=== PATIENT | male | born 1940 | race Caucasian/White ===

== ENCOUNTER 2016-05-28 08:26 | Emergency (ER) | payer OTHER, MEDICARE ==
[~2016-05-28] VITALS: Ht 167.6 cm; Wt 72.6 kg
--- NOTE | 2016-05-28 09:06 | ED GI/GU/ABDOMINAL COMPLAINT ---
History of Present Illness General Chief Complaint: Abdominal Pain/Flank Pain Stated Complaint: BACK ABD PAIN ? KIDNEY STONE Source: patient, old records, friend Exam Limitations: no limitations Vital Signs & Intake/Output Vital Signs & Intake/Output Vital Signs Date Time Temp Pulse Resp B/P Pulse O2 O2 Flow FiO2 Ox Delivery Rate 05/28 1428 96.0 72 18 116/68 96 Room Air 05/28 1203 97.0 85 20 131/70 95 Room Air 05/28 1018 98.1 74 16 133/68 99 Room Air 05/28 0831 95.8 84 16 149/79 98 Room Air Allergies Coded Allergies: No Known Allergies (05/28/16) Reconcile Medications Carvedilol 3.125 MG TABLET 1 TAB PO BID HEART (Reported) Clopidogrel Bisulfate (Clopidogrel) 75 MG TABLET 1 TAB PO DAILY BLOOD THINNER (Reported) Ezetimibe (Zetia) 10 MG TABLET 1 TAB PO DAILY CHOLESTEROL (Reported) Finasteride 5 MG TABLET 1 TAB PO DAILY PROSTATE (Reported) Losartan Potassium (Cozaar) 25 MG TABLET 1 TAB PO DAILY HEART (Reported) Lovastatin 40 MG TABLET 1 TAB PO DAILY CHOLESTEROL (Reported) with food Mexiletine HCl 150 MG CAPSULE 1 CAP PO BID UNKNOWN (Reported) Tamsulosin HCl (Flomax) 0.4 MG CAP.ER.24H 1 CAP PO DAILY PROSTATE (Reported) Triage Note: 75 Y/O MALE ABDIOM ABDOMEN AND RADIATING INTO LOW BACK; ONSET LAST NIGHT 1999. HX KIDNEY STONE WITH STENT PLACEMENT 2012 AND STATES THIS FEELS SIMILIAR. HAD HEMATURIA ONCE BUT NONE THIS AM. +N/V. Triage Nurses Notes Reviewed? yes Onset: Evening Duration: hour(s):, continues in ED, waxing and waning Timing: recent history Quality/Severity: aching, sharpness, severe, vomiting Location: left flank, right flank Radiation: periumbilical, suprapubic Activities at Onset: rest Prior Abdominal Problems: similar symptoms Past Sexual History: Unobtainable at this time No Modifying Factors: none Associated Symptoms: abdominal pain, loss of appetite, nausea/vomiting HPI: 5 hours prior to admission patient complains of sharp bilateral flank pain radiating to the periumbilical area described as sharp severe waxing and waning associated with chills nausea vomiting similar to previous kidney stone pain. Reports an episode of hematuria yesterday and cleared. He denies chest pain cough shortness of breath headache dysuria rash bleeding Past History Travel History Traveled to [place] past 21 day No Medical History Any Pertinent Medical History? see below for history Neurological: NONE EENT: NONE Cardiovascular: "HEART DISEASE" Respiratory: NONE Gastrointestinal: NONE Hepatic: NONE Renal: NONE Musculoskeletal: NONE Psychiatric: NONE Endocrine: NONE Blood Disorders: NONE Cancer(s): NONE ENROLLMENT SERVICES DEAN/Reproductive: NONE Surgical History Surgical History: turp, ureteral stents, lithotripsy Psychosocial History What is your primary language [place]uan Tobacco Use: Never used Family History Hx Contributory? No Review of Systems Review of Systems Constitutional: Reports: no symptoms. EENTM: Reports: no symptoms. Respiratory: Reports: no symptoms. Cardiovascular: Reports: no symptoms. GI: Reports: see HPI, abdominal pain, nausea, vomiting. Genitourinary: Reports: see HPI, hematuria, pain. Musculoskeletal: Reports: no symptoms. Skin: Reports: no symptoms. Neurological/Psychological: Reports: no symptoms. Hematologic/Endocrine: Reports: no symptoms. Immunologic/Allergic: Reports: no symptoms. All Other Systems: Reviewed and Negative Physical Exam Physical Exam General Appearance: well developed/nourished, alert, awake, anxious, severe distress Head: atraumatic, normal appearance Eyes: Bilateral: normal appearance, PERRL, EOMI, normal inspection. Ears, Nose, Throat, Mouth: hearing grossly normal, moist mucous membrane Neck: normal inspection, supple, full range of motion, normal alignment Respiratory: normal breath sounds, chest non-tender, no respiratory distress, quiet respiration, lungs clear Cardiovascular: regular rate/rhythm, normal peripheral pulses, norml femoral pulses equa Peripheral Pulses: 4+ carotid (R), 4+ carotid (L), 2+ radial (R), 2+ radial (L) Gastrointestinal: normal bowel sounds, soft, non-tender, no organomegaly Male Genitals: normal genitalia Back: normal inspection, normal range of motion Extremities: normal range of motion, no ligament instability Neurologic/Psych: no motor/sensory deficits, awake, alert, oriented x 3, normal gait, normal mood/affect, 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 No Severe Sepsis Present: No Septic Shock Present: No Progress Differential Diagnosis: ureterolithiasis, UTI/pyelo Plan of Care: Orders Procedure Date/time Status EKG 05/28 1424 Active URINALYSIS 05/28 843 Complete LIPASE 05/28 843 Complete COMPREHENSIVE METABOLIC PANEL 05/28 843 Complete CBC WITHOUT DIFFERENTIAL 05/28 843 Complete Laboratory Tests 05/28/16 1135: Urinalysis LIGHT H, Urine Color YEL, Urine Clarity CLEAR, Urine pH 6.0, Ur Specific [place] >= 1.030, Urine Protein NEG, Urine Ketones 40 H, Urine Nitrite NEG, Urine Bilirubin NEG, Urine Urobilinogen 0.2, Ur Leukocyte Esterase NEG, Ur Microscopic SEDIMENT EXAMINED, Urine RBC 3-5, Urine WBC 3-5 H, Ur Epithelial Cells RARE, Urine Mucus MOD H, Urine Hemoglobin MOD H, Urine Glucose NEG 05/28/16 0922: Anion Gap 12, Estimated GFR > 60, BUN/Creatinine Ratio 27.8 H, Glucose 114 H, Calcium 8.9, Total Bilirubin 0.9, AST 22, ALT 38, Alkaline Phosphatase 54, Total Protein 6.0 L, Albumin 3.6, Globulin 2.4, Albumin/Globulin Ratio 1.5, Lipase 77 , CBC w Diff NO MAN DIFF REQ, RBC 4.59 L, MCV 83.2, MCH 28.1, RDW 13.2, MPV 8.7 , Gran % 89.2 H, Lymphocytes % 6.3 L, Monocytes % 4.5, Eosinophils % 0, Basophils % 0 L, Absolute Granulocytes 7.3 H, Absolute Lymphocytes 0.5 L, Absolute Monocytes 0.4, Absolute Eosinophils 0, Absolute Basophils 0, PUBS MCHC 33.7 Diagnostic Imaging: Viewed by Me: CT Scan. Discussed w/RAD: CT Scan. Radiology Impression: There is an obstructive calculus within the distal right ureter. There is resulting right hydroureteronephrosis. There is extensive right perinephric stranding. Both kidneys contain several small calculi. There are bilateral renal cysts. Cholelithiasis. No evidence of acute cholecystitis. Colonic diverticulosis. No evidence of acute colonic diverticulitis. Marked enlargement of the prostate gland. Cardiomegaly. Initial ED EKG: none Comments: Seen by Dr. Archer, to return for cystoscopy with laser and stent Departure Departure Time of Disposition: 1509 Disposition: HOME OR SELF CARE Condition: Stable Clinical Impression Primary Impression: Renal colic Referrals: MERCY MURPHY,LUPE CHAN MD,Keysha WEINER (PCP/Family) Referred to [facility] as new patient No Departure Forms: Customer Survey General Discharge Information Prescriptions: Current Visit Scripts Tamsulosin HCl (Flomax) 1 CAP PO DAILY #15 CAP Ibuprofen 1 TAB PO Q6PRN PRN pain #50 TAB with food Oxycodone HCl/Acetaminophen (Percocet 5-325 MG Tablet) 1 TAB PO Q6P PRN severe pain #15 TAB
[2016-05-28] MEDS ORDERED: COZAAR25 M1 PO (09:07)
[2016-05-28] MEDS ORDERED: ZETIA10 M1 PO (09:07)
[2016-05-28] MEDS ORDERED: FINASTERIDE5 M1 PO (09:08)
[2016-05-28] MEDS ORDERED: CLOPIDOGREL75 M1 PO (09:08)
[2016-05-28] MEDS ORDERED: LOVASTATIN40 M1 PO (09:09)
[2016-05-28] MEDS ORDERED: CARVEDILOL3.125 M1 PO (09:09)
[2016-05-28] MEDS ORDERED: FLOMAX0.4 M1 PO ×2 (09:10→15:11)
[2016-05-28] MEDS ORDERED: MEXILETINE HCL150 M1 PO (09:10)
[2016-05-28 09:29] LABS: ABSOLUTE BASOPHIL COUNT 0 /CUMM (0.0-0.2); ABSOLUTE EOSINOPHIL COUNT 0 /CUMM (0.0-0.7); ABSOLUTE GRANULOCYTE CT 7.3 /CUMM (1.4-6.5); ABSOLUTE LYMPH COUNT 0.5 /CUMM (1.2-3.4); ABSOLUTE MONOCYTE COUNT 0.4 /CUMM (0.10-0.60); BASOPHIL % 0 % (0.0-2.0); EOSINOPHIL % 0 % (0-5); HEMATOCRIT 38.2 % (42-52); MEAN CORPUSCULAR HGB 28.1 PG (27.0-31.0); MEAN CORPUSCULAR HGB CONC 33.7 G/DL (33.0-37.0); MEAN CORPUSCULAR VOLUME 83.2 FL (80.0-94.0); MEAN PLATELET VOLUME 8.7 FL (7.4-10.4); PLATELET COUNT 171 /CUMM (130-400); RBC DISTRIBUTION WIDTH 13.2 % (11.5-14.5); RED BLOOD CELL CT 4.59 /CUMM (4.70-6.10); WHITE BLOOD CELL COUNT 8.2 /CUMM (4.8-10.8)
[2016-05-28 09:41] LABS: GRANULOCYTE % 89.2 % (42.2-75.2)
--- NOTE | 2016-05-28 11:50 | CT SCAN REPORT ---
EXAMINATION: CT ABDOMEN AND PELVIS WITHOUT CONTRAST CLINICAL INFORMATION: Bilateral flank pain. Nausea and vomiting. COMPARISON: None. TECHNIQUE: Multidetector volumetric imaging was performed from the superior aspect of the liver through the pubic symphysis. Sagittal and coronal reformatted images were obtained on the technologist's workstation. DLP: 378.82 mGy-cm. FINDINGS: LUNG BASES: There are dependent changes at the lung bases. The heart is mildly enlarged. Dual lead pacemaker appears intact. Sternotomy sutures appear intact. No pericardial effusion. LIVER, GALLBLADDER, AND BILIARY TREE: The unenhanced liver is normal in size. The gallbladder contains numerous calculi. There is no evidence of acute cholecystitis. PANCREAS: Normal in size. SPLEEN: Normal in size. ADRENAL GLANDS: No adrenal gland mass. KIDNEYS AND URETERS: There is a 6 mm calculus within the distal right ureter just proximal to the ureterovesicular junction. The proximal right ureter is moderately dilated throughout its course. There is moderate periureteric stranding. There is mild right hydronephrosis. There is extensive right perinephric stranding. There are several punctate calculi scattered throughout the right kidney. There is a partially exophytic low-attenuation lesion along the posterior aspect of the mid to lower region of the right kidney measuring 2.3 x 2.5 cm. There is no left hydronephrosis. There is a partially exophytic low-attenuation lesion measuring 3.8 x 3.7 cm within the upper pole of the left kidney. There are several small calculi scattered throughout the left kidney, the largest measuring approximately 3 mm. There is nonspecific, mild perinephric stranding on the left. The urinary bladder is partially distended. It appears grossly normal. There is no bladder calculi. GASTROINTESTINAL TRACT: The unopacified small bowel and colon are normal in caliber. Mild sigmoid colon diverticulosis. No diverticulitis. The appendix is not definitely identified. However, there are no inflammatory changes in the expected location of the appendix to indicate acute appendicitis. ABDOMINAL WALL: There are fat-containing inguinal hernias. There are postsurgical changes status post left inguinal hernia repair. LYMPH NODES: There are mildly enlarged lymph nodes within the retroperitoneum, likely reactive. VASCULAR: There is no abdominal aortic aneurysm. There is moderate atherosclerotic calcification throughout the abdominal aorta. PELVIC VISCERA: The prostate gland is markedly enlarged measuring 6.2 x 6.5 cm. OSSEOUS STRUCTURES: There are significant degenerative changes of the lower lumbar spine, most severe at L5-S1. IMPRESSION: There is an obstructive calculus within the distal right ureter. There is resulting right hydroureteronephrosis. There is extensive right perinephric stranding. Both kidneys contain several small calculi. There are bilateral renal cysts. Cholelithiasis. No evidence of acute cholecystitis. Colonic diverticulosis. No evidence of acute colonic diverticulitis. Marked enlargement of the prostate gland. Cardiomegaly. The above findings were discussed with Dr Tyshawn Morataya at 11:40 AM on 05/28/2016.
[2016-05-28 14:28] VITALS: BP 116/68
--- NOTE | 2016-05-28 15:10 | Cons- Urology ---
General Information and HPI Consulting Request Date of Consult: 05/28/16 Requested By: MD JULIA, [facility] Reason for Consult: RIGHT HYDRO. URETER STONE Source of Information: patient, old records Exam Limitations: no limitations History of Present Illness: 75YR WITH SEVERE RIGHT COLIC, 6MM WITH HYDRO ON RIGHT WITH CT. PAIN/NAUSEA RESOLVED WITH MORPHINE. Allergies/Medications Allergies: Coded Allergies: No Known Allergies (05/28/16) Home Med List: Carvedilol 3.125 MG TABLET 1 TAB PO BID HEART (Reported) Clopidogrel Bisulfate (Clopidogrel) 75 MG TABLET 1 TAB PO DAILY BLOOD THINNER (Reported) Ezetimibe (Zetia) 10 MG TABLET 1 TAB PO DAILY CHOLESTEROL (Reported) Finasteride 5 MG TABLET 1 TAB PO DAILY PROSTATE (Reported) Losartan Potassium (Cozaar) 25 MG TABLET 1 TAB PO DAILY HEART (Reported) Lovastatin 40 MG TABLET 1 TAB PO DAILY CHOLESTEROL (Reported) with food Mexiletine HCl 150 MG CAPSULE 1 CAP PO BID UNKNOWN (Reported) Tamsulosin HCl (Flomax) 0.4 MG CAP.ER.24H 1 CAP PO DAILY PROSTATE (Reported) Current Medications: Current Medications Sig/Donte Start time Last Medication Dose Route Stop Time Status Admin Ketorolac 0 .STK-MED ONE 05/28 857 DC Tromethamine .ROUTE Ketorolac 30 MG ONCE ONE 05/28 844 DC 05/28 Tromethamine IV 05/28 0846 0901 Morphine Sulfate 0 .STK-MED ONE 05/28 1230 DC .ROUTE Morphine Sulfate 4 MG ONCE ONE 05/28 1215 DC 05/28 IV 05/28 1216 1235 Morphine Sulfate 0 .STK-MED ONE 05/28 0858 DC .ROUTE Morphine Sulfate 4 MG ONCE ONE 05/28 0745 DC / IV 05/28 0846 0901 Ondansetron HCl 0 .STK-MED ONE 05/28 0858 DC .ROUTE Ondansetron HCl 4 MG ONCE ONE 05/28 0745 DC 05/28 IV 05/28 0846 0901 Sodium Chloride 1,000 ML BOLUS ONE 05/28 1415 AC / IV 05/28 1514 1438 Sodium Chloride 1,000 ML BOLUS ONE 05/28 0845 DC 05/28 IV 05/28 0944 0855 Past History Medical History Neurological: NONE EENT: NONE Cardiovascular: "HEART DISEASE" Respiratory: NONE Gastrointestinal: NONE Hepatic: NONE Renal: NONE Musculoskeletal: NONE Psychiatric: NONE Endocrine: NONE Blood Disorders: NONE Cancer(s): NONE 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 yes Review of Systems Review of Systems Constitutional: Denies: no symptoms. EENTM: Denies: no symptoms. Cardiovascular: Denies: no symptoms. Respiratory: Denies: no symptoms. GI: Reports: abdominal pain. Genitourinary: Denies: no symptoms. Musculoskeletal: Denies: no symptoms. Exam & Diagnostic Data Vital Signs and I&O Vital Signs Date Time Temp Pulse Resp B/P Pulse O2 O2 Flow FiO2 Ox Delivery Rate 05/28 1428 96.0 72 18 116/68 96 Room Air 05/28 1203 97.0 85 20 131/70 95 Room Air 05/28 1018 98.1 74 16 133/68 99 Room Air 05/28 0831 95.8 84 16 149/79 98 Room Air Intake & Output 05/28 1600 05/28 0800 05/28 0000 05/27 1600 05/27 0800 05/27 0000 Intake Total 1000 Output Total Balance 1000 Intake, IV 1000 Patient 160 lb Weight Physical Exam General Appearance: well developed/nourished, no apparent distress Head: atraumatic Eyes: Bilateral: normal appearance. Respiratory: normal breath sounds Cardiovascular: regular rate/rhythm Gastrointestinal: normal bowel sounds Back: CVA tenderness (R) Extremities: normal inspection Skin: intact, normal color Last 24 Hours of Labs: Laboratory Tests 05/28 05/28 1135 0922 Chemistry Sodium (137 - 145 mmol/L) 138 Potassium (3.5 - 5.1 mmol/L) 3.7 Chloride (98 - 107 mmol/L) 105 Carbon Dioxide (22 - 30 mmol/L) 21 L Anion Gap (5 - 16) 12 BUN (9 - 20 mg/dL) 25 H Creatinine (0.7 - 1.2 mg/dL) 0.9 Estimated GFR (>60 ml/min) > 60 BUN/Creatinine Ratio (7 - 25 %) 27.8 H Glucose (65 - 99 mg/dL) 114 H Calcium (8.4 - 10.2 mg/dL) 8.9 Total Bilirubin (0.2 - 1.3 mg/dL) 0.9 AST (17 - 59 U/L) 22 ALT (21 - 72 U/L) 38 Alkaline Phosphatase (< 127 U/L) 54 Total Protein (6.3 - 8.2 g/dL) 6.0 L Albumin (3.5 - 5.0 g/dL) 3.6 Globulin (1.9 - 4.2 gm/dL) 2.4 Albumin/Globulin Ratio (1.1 - 2.2 %) 1.5 Lipase (23 - 300 U/L) 77 Hematology CBC w Diff NO MAN DIFF REQ WBC (4.8 - 10.8 /CUMM) 8.2 RBC (4.70 - 6.10 /CUMM) 4.59 L Hgb (14.0 - 18.0 G/DL) 12.9 L Hct (42 - 52 %) 38.2 L MCV (80.0 - 94.0 FL) 83.2 MCH (27.0 - 31.0 PG) 28.1 RDW (11.5 - 14.5 %) 13.2 Plt Count (130 - 400 /CUMM) 171 MPV (7.4 - 10.4 FL) 8.7 Gran % (42.2 - 75.2 %) 89.2 H Lymphocytes % (20.5 - 51.1 %) 6.3 L Monocytes % (1.7 - 9.3 %) 4.5 Eosinophils % (0 - 5 %) 0 Basophils % (0.0 - 2.0 %) 0 L Absolute Granulocytes (1.4 - 6.5 /CUMM) 7.3 H Absolute Lymphocytes (1.2 - 3.4 /CUMM) 0.5 L Absolute Monocytes (0.10 - 0.60 /CUMM) 0.4 Absolute Eosinophils (0.0 - 0.7 /CUMM) 0 Absolute Basophils (0.0 - 0.2 /CUMM) 0 PUBS MCHC (33.0 - 37.0 G/DL) 33.7 Urines Urinalysis LIGHT H Urine Color (YEL,AMB,STR) YEL Urine Clarity (CLEAR) CLEAR Urine pH (5.0 - 8.0) 6.0 Ur Specific [place] (1.001 - 1.035) >= 1.030 Urine Protein (NEG,<30 MG/DL) NEG Urine Ketones (NEG) 40 H Urine Nitrite (NEG) NEG Urine Bilirubin (NEG) NEG Urine Urobilinogen (0.1 - 1.0 EU/dl) 0.2 Ur Leukocyte Esterase (NEG) NEG Ur Microscopic SEDIMENT EXAMINED Urine RBC (0 - 5 /HPF) 3-5 Urine WBC (0 - 2 /HPF) 3-5 H Ur Epithelial Cells (NONE,FEW) RARE Urine Mucus (FEW,NONE) MOD H Urine Hemoglobin (NEG) MOD H Urine Glucose (N MG/DL) NEG Imaging Results: PATIENT: JOSE LUIS PITTMAN PRESENT AGE: 75 PATIENT ACCOUNT NO: [id number] : 42 LOCATION: [facility] ORDERING PHYSICIAN: YAAKOV MONTIEL MD SERVICE DATE: 05/28/16 EXAM TYPE: CAT - CT ABD & PELVIS W/O IV CONTRAS EXAMINATION: CT ABDOMEN AND PELVIS WITHOUT CONTRAST CLINICAL INFORMATION: Bilateral flank pain. Nausea and vomiting. COMPARISON: None. TECHNIQUE: Multidetector volumetric imaging was performed from the superior aspect of the liver through the pubic symphysis. Sagittal and coronal reformatted images were obtained on the technologist's workstation. DLP: 378.82 mGy-cm. FINDINGS: LUNG BASES: There are dependent changes at the lung bases. The heart is mildly enlarged. Dual lead pacemaker appears intact. Sternotomy sutures appear intact. No pericardial effusion. LIVER, GALLBLADDER, AND BILIARY TREE: The unenhanced liver is normal in size. The gallbladder contains numerous calculi. There is no evidence of acute cholecystitis. PANCREAS: Normal in size. SPLEEN: Normal in size. ADRENAL GLANDS: No adrenal gland mass. KIDNEYS AND URETERS: There is a 6 mm calculus within the distal right ureter just proximal to the ureterovesicular junction. The proximal right ureter is moderately dilated throughout its course. There is moderate periureteric stranding. There is mild right hydronephrosis. There is extensive right perinephric stranding. There are several punctate calculi scattered throughout the right kidney. There is a partially exophytic low-attenuation lesion along the posterior aspect of the mid to lower region of the right kidney measuring 2.3 x 2.5 cm. There is no left hydronephrosis. There is a partially exophytic low-attenuation lesion measuring 3.8 x 3.7 cm within the upper pole of the left kidney. There are several small calculi scattered throughout the left kidney, the largest measuring approximately 3 mm. There is nonspecific, mild perinephric stranding on the left. The urinary bladder is partially distended. It appears grossly normal. There is no bladder calculi. GASTROINTESTINAL TRACT: The unopacified small bowel and colon are normal in caliber. Mild sigmoid colon diverticulosis. No diverticulitis. The appendix is not definitely identified. However, there are no inflammatory changes in the expected location of the appendix to indicate acute appendicitis. ABDOMINAL WALL: There are fat-containing inguinal hernias. There are postsurgical changes status post left inguinal hernia repair. LYMPH NODES: There are mildly enlarged lymph nodes within the retroperitoneum, likely reactive. VASCULAR: There is no abdominal aortic aneurysm. There is moderate atherosclerotic calcification throughout the abdominal aorta. PELVIC VISCERA: The prostate gland is markedly enlarged measuring 6.2 x 6.5 cm. OSSEOUS STRUCTURES: There are significant degenerative changes of the lower lumbar spine, most severe at L5-S1. IMPRESSION: There is an obstructive calculus within the distal right ureter. There is resulting right hydroureteronephrosis. There is extensive right perinephric stranding. Both kidneys contain several small calculi. There are bilateral renal cysts. Cholelithiasis. No evidence of acute cholecystitis. Colonic diverticulosis. No evidence of acute colonic diverticulitis. Marked enlargement of the prostate gland. Cardiomegaly. The above findings were discussed with Dr Yaakov Montiel at 11:40 AM on 05/28/2016. Other Results: EKG DONE Assessment/Plan Assessment/Plan RIGHT HYDRO DUE TO 6MM URETER STONE: FOR RIGHT STENT URETEROSCOPY-LASER ON Copies To: LIZZY MURPHY,VITO MADRID MD,LUPE Consult Acknowledgment - Thank you for your consult request. Attending MD Review Statement Attending Statement Attending MD Statement: examined this patient, discuss w/resident/PA/VOICE WRITING REPORTER Attending Assessment/Plan: RIGHT HYDRO-STENT FOR URETEROSCOPY
[2016-05-28] MEDS ORDERED: IBUPROFEN600 M1 PO (15:11)
[2016-05-28] MEDS ORDERED: PERCOCET 5-3251 EACH PO (15:11)
== END 2016-05-28 15:36 ==
LOC: ERH 08:26
PROVIDERS: Emergency Medicine
DX: N23 Unspecified renal colic (principal)
CPT/HCPCS: 74176; 81001; 93005; 93010; 96361; 96374; 96375; 96376; J1885; J2405

== ENCOUNTER 2016-05-30 21:29 | Inpatient (IN) | payer OTHER, MEDICARE ==
[~2016-05-30] VITALS: Ht 167.6 cm; Wt 72.6 kg
[~2016-05-30 21:29] MED LIST changes: -VALIUM5 M2 PO
--- NOTE | 2016-05-30 21:36 | NUR ---
TRIAGE; PT TO ED WITH INABILITY TO VOID. STATES HE HAD A KIDNEY STONE REMOVED VIA LASER TODAY BY DR MADRID. STATES AT FIRST WAS ABLE TO VOID THEN STOPPED. STATES WHEN HE WAS IT WAS MOSTLY BLOOD. C/O LOWER ABD PRESSURE NOW AT THIS TIME WELL.
--- NOTE | 2016-05-30 21:57 | ED GI/GU/ABDOMINAL COMPLAINT ---
History of Present Illness General Chief Complaint: Male Genitourinary Problems Stated Complaint: UNABLE TO VOID, S/P KIDNEY STONE LASER SURGERY Source: patient, family, old records Exam Limitations: no limitations Vital Signs & Intake/Output Vital Signs & Intake/Output Vital Signs Date Time Temp Pulse Resp B/P Pulse O2 O2 Flow FiO2 Ox Delivery Rate 05/31 08 98.6 82 18 138/82 98 Room Air 05/31 0640 97.3 75 18 116/68 96 Room Air 05/31 0454 72 16 130/65 98 05/31 0244 96.3 78 18 138/63 98 Room Air 05/31 0029 96.9 83 18 150/85 98 05/30 2134 97.2 82 16 166/83 96 Room Air Allergies Coded Allergies: No Known Allergies (05/28/16) Reconcile Medications Carvedilol 3.125 MG TABLET 1 TAB PO BID HEART (Reported) Clopidogrel Bisulfate (Clopidogrel) 75 MG TABLET 1 TAB PO DAILY BLOOD THINNER (Reported) Ezetimibe (Zetia) 10 MG TABLET 1 TAB PO DAILY CHOLESTEROL (Reported) Finasteride 5 MG TABLET 1 TAB PO DAILY PROSTATE (Reported) Ibuprofen 600 MG TABLET 1 TAB PO Q6PRN PRN pain with food Losartan Potassium (Cozaar) 25 MG TABLET 1 TAB PO DAILY HEART (Reported) Lovastatin 40 MG TABLET 1 TAB PO DAILY CHOLESTEROL (Reported) with food Mexiletine HCl 150 MG CAPSULE 1 CAP PO BID UNKNOWN (Reported) Oxycodone HCl/Acetaminophen (Percocet 5-325 MG Tablet) 5 MG-325 MG TABLET 1 TAB PO Q6P PRN severe pain Tamsulosin HCl (Flomax) 0.4 MG CAP.ER.24H 1 CAP PO DAILY PROSTATE (Reported) Tamsulosin HCl (Flomax) 0.4 MG CAP.ER.24H 1 CAP PO DAILY kidney stone Triage Note: TRIAGE; PT TO ED WITH INABILITY TO VOID. STATES HE HAD A KIDNEY STONE REMOVED VIA LASER TODAY BY DR ARCHER. STATES AT FIRST WAS ABLE TO VOID THEN STOPPED. STATES WHEN HE WAS IT WAS MOSTLY BLOOD. C/O LOWER ABD PRESSURE NOW AT THIS TIME WELL. Triage Nurses Notes Reviewed? yes HPI: Patient had laser surgery performed today to break up a 6 mm stone in his right ureter and had a stent placement. Patient was able to urinate after the procedure but was having some clots. Since 7 PM patient has been unable to void. Patient has a strong urgency to void but nothing is coming out. Patient is now complaining of 8 out of 10 pressure pain to his suprapubic area. There is no radiation. There are no aggravating or mitigating factors. There is no nausea or vomiting. There is no diarrhea. There are no fevers or chills. (ZEB MURPHY,SUZANNA Contreras) Past History Travel History Traveled to [place] past 21 day No Medical History Any Pertinent Medical History? 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 No (ZEB MURPHY,SUZANNA Contreras) Review of Systems Review of Systems Constitutional: Reports: no symptoms. EENTM: Reports: no symptoms. Respiratory: Reports: no symptoms. Cardiovascular: Reports: no symptoms. GI: Reports: see HPI. Genitourinary: Reports: see HPI. Neurological/Psychological: Reports: no symptoms. (ZEB MURPHY,SUZANNA Contreras) Physical Exam Physical Exam General Appearance: well developed/nourished, alert, awake, anxious, moderate distress Eyes: Bilateral: PERRL, EOMI. Neck: normal inspection, supple, full range of motion Respiratory: normal breath sounds, chest non-tender, no respiratory distress, lungs clear Cardiovascular: regular rate/rhythm, normal peripheral pulses Gastrointestinal: normal bowel sounds, soft, no organomegaly, tenderness (OVER BLADDER) Male Genitals: normal genitalia Back: normal inspection, normal range of motion, NO cva TENDERNESS Neurologic/Psych: no motor/sensory deficits, awake, alert, oriented x 3, normal gait, normal mood/affect Core Measures ACS in differential dx? No Severe Sepsis Present: No Septic Shock Present: No (ZEB MURPHY,SUZANNA Contreras) Progress Differential Diagnosis: urinary retention, UTI/pyelo Plan of Care: Orders Procedure Date/time Status Heart Healthy Diet 05/31 L Active Admit to inpatient 05/31 0846 Active Vital Signs 05/31 0846 Active Code Status 05/31 0746 Active Hernandez, Insertion/Removal/Asses 05/30 2155 Active CULTURE,URINE 05/30 2155 Active URINALYSIS 05/30 2134 Complete Laboratory Tests 05/30/16 2300: Urine Color BLDY H, Urine Clarity TURBD H, Urine pH 7.0, Ur Specific [place] 1.020, Urine Protein >=300 H, Urine Ketones 15 H, Urine Nitrite POS H, Urine Bilirubin NEG, Urine Urobilinogen >=8.0 H, Ur Leukocyte Esterase MOD H, Ur Microscopic SEDIMENT EXAMINED, Urine RBC PACKD H, Urine Hemoglobin LARGE H, Urine Glucose 100 H Microbiology 05/30 2155 URINE ROUT: Urine Culture - ORD Initial ED EKG: none Hand-Off Endorsed To: ARGELIA WILLOUGHBY DO Endorsed Time: 0700 Pending: consult (RE-EVAL BY DR. ARCHER) Comments: Unable to pass the Hernandez catheter. 3 different nurses and myself all attempted. We have attempted with silicone catheters, regular flow catheters, coud catheters large and small diameters. Call is been made to Dr. Archer. Hernandez catheter placed by Dr. Archer and patient is on CBI with good results. Patient to remain on CBI until he is reevaluated by Dr. Archer here in the emergency department. (ZEB MURPHY,SUZANNA Contreras) Departure Departure Disposition: STILL A PATIENT Condition: Stable Clinical Impression Primary Impression: Urinary retention Secondary Impressions: Hematuria Referrals: MERCY MURPHY,LUPE CHAN MD,Keysha WEINER (PCP/Family) Departure Forms: Customer Survey General Discharge Information (SUZANNA CARDONA MD) Admission Note Spoke With: LANCE CORRIGAN MD Documentation of Exam: Documentation of any treatments & extenuating circumstances including Concerns Regarding Discharge (functional status, medication knowledge or non-compliance, living conditions, etc.) that warrant an admission rather than observation: [The patient needs admission for CBI therapy, urology consultation and follow-up, consider serial hemoglobin and hematocrits] (ARGELIA WILLOUGHBY DO) Critical Care Note Critical Care Note Comments: 06/01/16 8:50 am The patient was signed out to me by Dr. Cardona at 7 AM. He continued to have discomfort and hematuria. He was evaluated by the urologist in the Emergency Department. He is being admitted to the hospital for further care. (ARGELIA WILLOUGHBY DO)
--- NOTE | 2016-05-30 22:53 | NUR ---
PT EVALUATED BY DR. CARRINGTON. ATTEMPTED TO PLACE #18 FR COUDE CATH. UNSUCCESSFUL. PT IN SEVERE PAIN. MORPHINE SC ADMINISTERED ON RIGHT UPPER ARM. RN KIRILL IN ROOM ATTEMPTING TO PLACE CATH.
--- NOTE | 2016-05-31 | NUR ---
AFTER MULTIPLE ATTEMPTS BY 2 RNS AND MD CARRINGTON. UNABLE TO INSERT CATHETER. PT TOLERTED WELL. NO APPARENT DISTRESS.
--- NOTE | 2016-05-31 02:01 | NUR ---
PT MEDICATED WITH VALIUM PER ORDER
--- NOTE | 2016-05-31 02:15 | RADIOLOGY REPORT ---
EXAMINATION: XR ABDOMEN CLINICAL INDICATION: Bladder pain. Stent placed on 05/30/2016. COMPARISON: CT dated 05/28/2016 and ureteroscopy images from 05/30/2016 TECHNIQUE: AP view of the abdomen FINDINGS: There is a double-J right ureteral stent with coils extending from the right renal pelvis to the right hemipelvis in the region of the ureteral orifice of the bladder. No regions calculi are identified. There is a nondilated bowel gas pattern. Hernia mesh coils are present in the left lower quadrant. Mild degenerative changes are present in the lumbar spine. IMPRESSION: Double-J ureteral stent with coils in the region of the right renal pelvis and right half of the bladder. No radiodense renal calculi.
--- NOTE | 2016-05-31 02:39 | NUR ---
PT APPEARS COMFORTBALE AFTER BEING MEDICATED
--- NOTE | 2016-05-31 03:09 | NUR ---
MD MADRID AT BEDSIDE
--- NOTE | 2016-05-31 03:56 | Cons- Urology ---
General Information and HPI Consulting Request Date of Consult: 05/31/16 Requested By: MD ZEB, [place]- Reason for Consult: CLOT RETENTION Source of Information: patient Exam Limitations: no limitations History of Present Illness: 75 YEAR OLD WITH LONG HX BPH-POST TURP 10 YRS AGO CAME TO ER IN RETENTION. PT IS S/P RIGHT URETEROSCOPY-LASER LITHO URETER STONE-STENT PLACEMENT TODAY. VOIDING WELL POST OP INITIALLY AND 7 HOURS LATER IN RETENTION. DIFFICULT VERMA PLACEMENT AND CALLED IN FOR CBI PLACEMENT: SUCCESSFUL 22 FR COUDE ON NS CBI WITH SMALL AMT. CLOT EVACUATION AT BEDSIDE. PT NOW VERY COMFORTABLE. Allergies/Medications Allergies: Coded Allergies: No Known Allergies (05/28/16) Home Med List: Carvedilol 3.125 MG TABLET 1 TAB PO BID HEART (Reported) Clopidogrel Bisulfate (Clopidogrel) 75 MG TABLET 1 TAB PO DAILY BLOOD THINNER (Reported) Ezetimibe (Zetia) 10 MG TABLET 1 TAB PO DAILY CHOLESTEROL (Reported) Finasteride 5 MG TABLET 1 TAB PO DAILY PROSTATE (Reported) Ibuprofen 600 MG TABLET 1 TAB PO Q6PRN PRN pain with food Losartan Potassium (Cozaar) 25 MG TABLET 1 TAB PO DAILY HEART (Reported) Lovastatin 40 MG TABLET 1 TAB PO DAILY CHOLESTEROL (Reported) with food Mexiletine HCl 150 MG CAPSULE 1 CAP PO BID UNKNOWN (Reported) Oxycodone HCl/Acetaminophen (Percocet 5-325 MG Tablet) 5 MG-325 MG TABLET 1 TAB PO Q6P PRN severe pain Tamsulosin HCl (Flomax) 0.4 MG CAP.ER.24H 1 CAP PO DAILY PROSTATE (Reported) Tamsulosin HCl (Flomax) 0.4 MG CAP.ER.24H 1 CAP PO DAILY kidney stone Current Medications: Current Medications Sig/Donte Start time Last Medication Dose Route Stop Time Status Admin Diazepam 0 .STK-MED ONE 05/31 134 DC .ROUTE Diazepam 5 MG ONCE ONE 05/31 129 DC 05/31 IV 05/31 Morphine Sulfate 4 MG ONCE ONE 05/30 2244 DC 05/30 SC 05/30 Morphine Sulfate 0 .STK-MED ONE 05/30 2241 DC .ROUTE Past History Medical History Neurological: NONE EENT: NONE Cardiovascular: "HEART DISEASE" Respiratory: NONE Gastrointestinal: NONE Hepatic: NONE Renal: NONE, benign prost hyperplasia Musculoskeletal: NONE Psychiatric: NONE Endocrine: NONE Blood Disorders: NONE Cancer(s): NONE 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 yes Review of Systems Review of Systems Constitutional: Reports: see HPI. EENTM: Denies: no symptoms. Cardiovascular: Denies: no symptoms. Respiratory: Denies: no symptoms. GI: Denies: no symptoms. Genitourinary: Reports: hematuria, pain. Musculoskeletal: Denies: no symptoms. Skin: Denies: no symptoms. Exam & Diagnostic Data Vital Signs and I&O Vital Signs Date Time Temp Pulse Resp B/P Pulse O2 O2 Flow FiO2 Ox Delivery Rate 05/31 0244 96.3 78 18 138/63 98 Room Air 05/31 0029 96.9 83 18 150/85 98 05/30 2134 97.2 82 16 166/83 96 Room Air Intake & Output 05/31 0805/31 0000 05/30 1600 05/30 0800 05/30 0000 05/29 1600 Intake Total 0 Output Total Balance 0 Intake, Oral 0 Physical Exam General Appearance: well developed/nourished, mild distress Head: atraumatic Eyes: Bilateral: normal appearance. Neck: normal inspection Respiratory: normal breath sounds Cardiovascular: regular rate/rhythm Gastrointestinal: normal bowel sounds, soft, distention Rectal: LARGE PROSTATE-POST TURP Back: no vertebral tenderness Extremities: normal inspection Skin: intact, normal color, warm/dry Reproductive: Normal male genitalia Last 24 Hours of Labs: Laboratory Tests 05/30 2300 Urines Urine Color (YEL,AMB,STR) BLDY H Urine Clarity (CLEAR) TURBD H Urine pH (5.0 - 8.0) 7.0 Ur Specific [place] (1.001 - 1.035) 1.020 Urine Protein (NEG,<30 MG/DL) >=300 H Urine Ketones (NEG) 15 H Urine Nitrite (NEG) POS H Urine Bilirubin (NEG) NEG Urine Urobilinogen (0.1 - 1.0 EU/dl) >=8.0 H Ur Leukocyte Esterase (NEG) MOD H Ur Microscopic SEDIMENT EXAMINED Urine RBC (0 - 5 /HPF) PACKD H Urine Hemoglobin (NEG) LARGE H Urine Glucose (N MG/DL) 100 H Imaging Results: PATIENT: JOSE LUIS PITTMAN PRESENT AGE: 75 PATIENT ACCOUNT NO: [id number] : 42 LOCATION: [facility] ORDERING PHYSICIAN: SUZANNA CARRINGTON MD SERVICE DATE: 05/31/160127 EXAM TYPE: RAD - [id number] VIEW EXAMINATION: XR ABDOMEN CLINICAL INDICATION: Bladder pain. Stent placed on 05/30/2016. COMPARISON: CT dated 05/28/2016 and ureteroscopy images from 05/30/2016 TECHNIQUE: AP view of the abdomen FINDINGS: There is a double-J right ureteral stent with coils extending from the right renal pelvis to the right hemipelvis in the region of the ureteral orifice of the bladder. No regions calculi are identified. There is a nondilated bowel gas pattern. Hernia mesh coils are present in the left lower quadrant. Mild degenerative changes are present in the lumbar spine. IMPRESSION: Double-J ureteral stent with coils in the region of the right renal pelvis and right half of the bladder. No radiodense renal calculi. Assessment/Plan Assessment/Plan PT WITH BPH IN CLOT RETENTIOM POST OP: 3-WAY-CBI STARTED NOW COMFORTABLE AND CLEAR. Copies To: [facility]CY MURPHY,LUPE Consult Acknowledgment - Thank you for your consult request. Attending MD Review Statement Attending Statement Attending MD Statement: examined this patient, discuss w/resident/PA/LEAD SOFTWARE QA ENGINEER Attending Assessment/Plan: CLOT RETENTION RESOLVED POST 3-WAY CBI, CLOT EVACUATION. WILL RE-EVAL IN AM AND PLAN DC HOME WITH VERMA IN FEW HOURS.
--- NOTE | 2016-05-31 04:00 | NUR ---
3 WAY CATHETER INSERTED AND CBI INTIATED BY MD MADRID
--- NOTE | 2016-05-31 04:28 | NUR ---
PT APPEARS MORE COMFORTABLE. PT DENIES PAIN AND REPORTS FEELING "GREAT". WILL CONTINUE TO MONITOR.
--- NOTE | 2016-05-31 05:00 | NUR ---
CBI CONTINUES. DRAINING LIGHT PINK INTO VERMA BAG
--- NOTE | 2016-05-31 07:02 | NUR ---
CBI CONTINUED. DARK RED OUTPUT NOTED. BACKING UP INTO BAG. CATH MANUALLY FLUSHED WITH 60 CC NS. OUTPUT CLEARED TO LIGHT PINK.
--- NOTE | 2016-05-31 07:28 | NUR ---
JOSE LUIS PITTMAN Nurse Note by: MICHELL VIGIL. I agree with the CHOCOLATIER findings/evaluation of this patient's condition. Entered by: MICHELL VIGIL. Date: 05/31/16 Time: 07
--- NOTE | 2016-05-31 07:30 | NUR ---
ASSUMED CARE OF PT AT THSI TIME. PT RESTING ON STRETCHER, CBI CONTINUES TO INFUSE AT THIS TIME, DRAINING LIGHT RED URINE. PT APPEARS COMFORTABLE AND STATES HE IS HAVING NO DISCOMFORT AT THIS TIME. WILL CTM.
--- NOTE | 2016-05-31 07:52 | NUR ---
3RD BAG INFUSING AT THIS TIME FOR CBI. PT REMAINS TOLERATING IRRIGATION WELL. STILL REMAINS IN NO DISCOMFORT. WILL CTM.
--- NOTE | 2016-05-31 07:58 | NUR ---
PT C/O PAIN, FLUIDS NOTED TO BE COMING OUT AROUND CATHETER INSERTION SITE AT THIS TIME. CBI SHUT OFF AND IRRIGATED WITH 120CC NS AT THIS TIME. SMALL CLOTS NOTED TO COME OUT DURING IRRIGATION. CBI RESUMED AND DRAINING CLEAR URINE AT THIS TIME. PT C/O PAIN TO LOWER ABD. DR WILLOUGHBY AWARE
--- NOTE | 2016-05-31 08:24 | NUR ---
PT MEDICATED WITH 5MG IV VALIUM PER ORDER AT THIS TIME. CBI REMAINS DRAINING CLEAR URINE AT THIS TIME. WILL CTM
--- NOTE | 2016-05-31 08:35 | NUR ---
DR MADRID IN TO SEE PT AT THIS TIME.
--- NOTE | 2016-05-31 08:58 | NUR ---
BAG 4 STARTED AT THIS TIME FOR CBI. URINE DRAINING LIGHT PINK AT THIS TIME. PT REMAINS COMFORTABLE. AWARE HE WILL BE ADMITTED.
--- NOTE | 2016-05-31 09:06 | NUR ---
HEART HEALTHY TRAY ORDERED FOR PT AT THIS TIME.
--- NOTE | 2016-05-31 09:58 | NUR ---
BAG 5 STARTED AT THIS TIME. URINE CONTINUES TO DRAIN LIGHT PINK AT THIS TIME. PT REMAINS COMFORTABLE. WILL CTM.
--- NOTE | 2016-05-31 10:16 | History & Physical ---
ABIGAIL SANCHES 05/31/16 1016: General Information and HPI MD Statement: I have seen and personally examined JOSE LUIS PITTMAN and documented this H&P. The patient is a 75 year old M who presented with a patient stated chief complaint of [hematuria]. Source of Information: patient Exam Limitations: no limitations History of Present Illness: Patient is 75 year old male with extensive PMH of CABG 1984, stent placement 1991, PPM 2012 came to ER after urinary rentention s/p laser lithotripsy on for 6 mm right renal stone. Patient had laser lithotripsy done at 2pm followed by a stent placement from right renal pelvis to right half of the bladder. Post procedure, patient was able to void with blood clots. However, around 7 pm, patient couldn't void and felt spasmodic pressure over his lower abdomen. Multiple attempts were made to insert quick in the patient yesterdaay without any success however, patient was seen by Dr. Archer in am and got a quick catheter. Patient is on CBI currently with pinkish drainage in quick bag. No abdominal pain currently. Denies any nausea, vomiting, fever/ chills, chest pain, difficulty breathing etc. Allergies/Medications Allergies: Coded Allergies: No Known Allergies (05/28/16) Home Med list Carvedilol 3.125 MG TABLET 1 TAB PO BID HEART (Reported) Clopidogrel Bisulfate (Clopidogrel) 75 MG TABLET 1 TAB PO DAILY BLOOD THINNER (Reported) Ezetimibe (Zetia) 10 MG TABLET 1 TAB PO DAILY CHOLESTEROL (Reported) Finasteride 5 MG TABLET 1 TAB PO DAILY PROSTATE (Reported) Ibuprofen 600 MG TABLET 1 TAB PO Q6PRN PRN pain with food Losartan Potassium (Cozaar) 25 MG TABLET 1 TAB PO DAILY HEART (Reported) Lovastatin 40 MG TABLET 1 TAB PO DAILY CHOLESTEROL (Reported) with food Mexiletine HCl 150 MG CAPSULE 1 CAP PO BID UNKNOWN (Reported) Oxycodone HCl/Acetaminophen (Percocet 5-325 MG Tablet) 5 MG-325 MG TABLET 1 TAB PO Q6P PRN severe pain Tamsulosin HCl (Flomax) 0.4 MG CAP.ER.24H 1 CAP PO DAILY PROSTATE (Reported) Past History Travel History Traveled to [place] past 21 day No Medical History Neurological: NONE EENT: NONE Cardiovascular: "HEART DISEASE" Respiratory: NONE Gastrointestinal: NONE Hepatic: NONE Renal: NONE, benign prost hyperplasia Musculoskeletal: NONE Psychiatric: NONE Endocrine: NONE Blood Disorders: NONE Cancer(s): NONE [facility] [employer] [facility]/Reproductive: NONE Surgical History Surgical History: turp ureteral stents, lithotripsy PACEMAKER 2013 Past Family/Social History Psychosocial History ETOH Use: denies use Illicit Drug Use: denies illicit drug use Functional Ability ADLs Independent: dressing, eating, toileting, bathing. Ambulation: independent IADLs Independent: shopping, housework, finances, food prep, telephone, transportation , medication admin. Review of Systems Review of Systems Constitutional: Reports: see HPI. Exam & Diagnostic Data Last 24 Hrs of Vital Signs/I&O Vital Signs Date Time Temp Pulse Resp B/P Pulse O2 O2 Flow FiO2 Ox Delivery Rate 05/31 0823 98.6 82 18 138/82 98 Room Air 05/31 0640 97.3 75 18 116/68 96 Room Air 05/31 0454 72 16 130/65 98 05/31 0244 96.3 78 18 138/63 98 Room Air 05/31 0029 96.9 83 18 150/85 98 05/30 2134 97.2 82 16 166/83 96 Room Air Intake & Output 05/31 1600 05/31 0800 05/31 0000 Intake Total 0 Output Total 6400 Balance -6400 Intake, Oral 0 Output, Urine 6400 Physical Exam General Appearance Alert, Oriented X3, Cooperative, No Acute Distress Skin No Rashes, No Breakdown HEENT Atraumatic Neck Supple Cardiovascular Regular Rate, Normal S1, Normal S2 Lungs Clear to Auscultation, Normal Air Movement Abdomen Normal Bowel Sounds, Soft, tenderness in right lower quadrant Neurological Normal Speech Extremities No Clubbing, No Cyanosis, No Edema Last 24 Hrs of Labs/Fabian: Laboratory Tests 05/30/16 2300: Urine Color BLDY H, Urine Clarity TURBD H, Urine pH 7.0, Ur Specific [place] 1.020, Urine Protein >=300 H, Urine Ketones 15 H, Urine Nitrite POS H, Urine Bilirubin NEG, Urine Urobilinogen >=8.0 H, Ur Leukocyte Esterase MOD H, Ur Microscopic SEDIMENT EXAMINED, Urine RBC PACKD H, Urine Hemoglobin LARGE H, Urine Glucose 100 H Microbiology 05/30 2155 URINE ROUT: Urine Culture - ORD Assessment/Plan Assessment: Patient is 75 year old male with extensive PMH of CABG 1984, stent placement 1991, PPM 2012 came to ER after urinary rentention s/p laser lithotripsy on for 6 mm right renal stone. Patient had laser lithotripsy done at 2pm followed by a stent placement from right renal pelvis to right half of the bladder. Post procedure, patient was able to void with blood clots. However, around 7 pm, patient couldn't void and felt spasmodic pressure over his lower abdomen. Multiple attempts were made to insert quick in the patient yesterdaay without any success however, patient was seen by Dr. Archer in am and got a quick catheter. Patient is on CBI currently with pinkish drainage in quick bag. No abdominal pain currently. Denies any nausea, vomiting, fever/ chills, chest pain , difficulty breathing etc. Vitals and labs as above. Post procedure x ray shows stent placement in right renal pelvis to right half of bladder. Will admit patient to general medicine floor, and continue CBI for now. Urology consult service on board. Patient will be monitered for overnight at and probably discharged in am. Will hold plavix and continue the rest of his medications. DVT ppx ALPS patient is full code As Ranked By This Provider Problem List: 1. Urinary retention 2. Hematuria 3. Retention, urine Core Measures/Miscellaneous Acute Coronary Syndrome ACS Diagnosis: No Cerebrovascular Accident CVA/TIA Diagnosis: No Congestive Heart Failure CHF Diagnosis: No Venous Thromboembolism VTE Risk Factors: Age > 40 VTE Prophylaxis Ordered Inpt: Mechanical (ALPS/TEDS) No Mech VTE prophylaxis d/t: No contraindications No VTE Pharm Prophylaxis d/t: Active bleeding VTE Diagnosis: No VTE Type: NONE VTE Confirmed by (Test): NONE Severe Sepsis Severe Sepsis Present: No Septic Shock Septic Shock Present: No Miscellaneous Documentation Attending Case Discussed With: LANCE CORRIGAN MD Primary Care Physician: Keysha CHAN MD Patient sees these Specialists Dr. Archer Level of Patient Care: General Medicine LANCE CORRIGAN MD 05/31/16 1242: Attending MD Review Statement Attending Statement Attending MD Statement: examined this patient, discuss w/resident/PA/ACUPUNCTURE PHYSICIAN, agreed w/resident/PA/ACUPUNCTURE PHYSICIAN, reviewed EMR data (avail) Attending Assessment/Plan: Patient seen for urology procedure, now with post-procedural hematuria requiring CBI. Patient has a history of CAD with stenting 8 years ago, currently on ASA and Plavix. ASA and Plavix can be held today, will restart tomorrow if hematuria has improved. Monitor Hgb, continue home medications, can go home when hematuria resolves.
--- NOTE | 2016-05-31 10:39 | NUR ---
PT REMAINS TOLERATING CBI WELL. 6TH BAG INFUSING AT THIS TIME.
--- NOTE | 2016-05-31 12:30 | NUR ---
PT ADMITTED TO ROOM 209-2 FLOOR WILL CALL WHEN BED IS READY
--- NOTE | 2016-05-31 12:44 | Admission Certification ---
Admission Certification Certification Statement - As attending physician, I certify that at the time of - admission, based on clinical presentation, severity of - symptoms, need for further diagnostic testing and - therapeutic interventions, and risk of adverse outcomes - without in-hospital treatment, in my clinical assessment, - this patient requires an acute hospital stay for a minimum - of two nights or longer. I have also considered psychsocial - factors such as support system, advanced age, financial - issues, cognitive issues, and failed out-patient treatments, - past re-admission history, safety of patient, and lack of - compliance as applicable. Specific rationale supporting this admission is: Post- procedure with massive hematuria requiring CBI, requires admission for CBI and to monitor Hgb given quantity of hematuria
--- NOTE | 2016-05-31 13:06 | NUR ---
PT ADMITTED TO BED # 209-2. ORAL REPORT GIVEN TO KELLY RICHARDSON PT MEDICATED DIRECTED, SEE MAR CBI INFUSING UNREMARKABLY. BAG # 7 STARTED
--- NOTE | 2016-05-31 13:33 | NUR ---
PT TRANSFERRED TO ROOM # 209-2 VIA DISTRIBUTION CBI IN PROGRESS UNREMARKABLY, BAG # 8 COMPLETE, BAG # 9 STARTED.
[2016-05-31 13:44] VITALS: BP 125/76
--- NOTE | 2016-05-31 13:45 | NUR ---
PATIENT ARRIVED TO FLOOR FROM ER VIA STRETCHER; A/OX3; RA; AMBULATED INDEP FROM STRETCHER TO BED WITHOUT DIFFICULTY; [address] WITH CBI INFUSING; URINE NOTED TO BE CLEAR/PINK IN COLOR; PATIENT HAS NO COMPLAINTS OF PAIN/SPASMS AT THIS TIME; ALPS IN PLACE PER ORDER; PATIENT ORIENTED TO ROOM AND CALL BATRES; SIGNIFICANT OTHER VAHE AT BEDSIDE; WILL CONTINUE TO MONITOR PATIENT;
[2016-05-31 16:22] VITALS: BP 124/78
[2016-06-01 00:30] VITALS: BP 120/76
[2016-06-01 08:32] VITALS: BP 140/78
[2016-06-01 14:58] LABS: ABSOLUTE BASOPHIL COUNT 0 /CUMM (0.0-0.2); ABSOLUTE EOSINOPHIL COUNT 0.2 /CUMM (0.0-0.7); ABSOLUTE GRANULOCYTE CT 4.7 /CUMM (1.4-6.5); ABSOLUTE LYMPH COUNT 1.1 /CUMM (1.2-3.4); ABSOLUTE MONOCYTE COUNT 0.4 /CUMM (0.10-0.60); BASOPHIL % 0.4 % (0.0-2.0); EOSINOPHIL % 3.7 % (0-5); GRANULOCYTE % 73.3 % (42.2-75.2); HEMATOCRIT 39.8 % (42-52); MEAN CORPUSCULAR HGB 28.1 PG (27.0-31.0); MEAN CORPUSCULAR HGB CONC 33.2 G/DL (33.0-37.0); MEAN CORPUSCULAR VOLUME 84.7 FL (80.0-94.0); PLATELET COUNT 201 /CUMM (130-400); RBC DISTRIBUTION WIDTH 13.4 % (11.5-14.5); WHITE BLOOD CELL COUNT 6.5 /CUMM (4.8-10.8)
[2016-06-01 16:11] VITALS: BP 136/70
[2016-06-02 00:06] VITALS: BP 162/80
[2016-06-02 08:30] VITALS: BP 121/80
--- NOTE | 2016-06-02 09:17 | PN- Housestaff ---
EMIR MURPHY,STACIE 06/02/16 0917: Subjective Follow-up For: Hematuria Subjective: Patient reports he is feeling fine. Has been complaining of bladder spasms overnight. Received 1 dose of Motrin with good relief. Currently on continuous bladder irrigation with urine clearing up compared to yesterday. Review of Systems Constitutional: Reports: see HPI. Objective Last 24 Hrs of Vital Signs/I&O Vital Signs Date Time Temp Pulse Resp B/P Pulse O2 O2 Flow FiO2 Ox Delivery Rate 06/02 1131 80 140/72 06/02 1130 80 140/72 06/02 1130 80 140/72 06/02 0830 98.5 76 20 121/80 94 Room Air 06/02 0006 98.3 107 20 162/80 96 06/01 2243 85 136/70 06/01 1611 98.3 85 20 136/70 94 Room Air Intake & Output 06/02 1600 06/02 0800 06/02 0000 Intake Total 100 200 Output Total 900 300 Balance -800 -100 Intake, Oral 100 200 Output, Urine 900 300 Physical Exam General Appearance: Alert, Oriented X3, Cooperative, No Acute Distress Skin: No Rashes Cardiovascular: Regular Rate, Normal S1, Normal S2, No Murmurs Lungs: Clear to Auscultation Abdomen: Normal Bowel Sounds, Soft, No Tenderness Neurological: Normal Speech Extremities: No Clubbing, No Cyanosis, No Edema Current Medications: Current Medications Sig/Donte Start time Last Medication Dose Route Stop Time Status Admin Acetaminophen 650 MG Q8P PRN 05/31 1100 AC 05/31 PO 2248 Atorvastatin Calcium 10 MG 1700 05/31 1700 AC 06/01 PO 1836 Carvedilol 3.125 MG BID 05/31 1043 AC 06/02 PO 1130 Ezetimibe 10 MG DAILY 05/31 1044 AC 06/02 PO 1131 Finasteride 5 MG DAILY 05/31 1044 AC 06/02 PO 1131 Ibuprofen 800 MG .STK-MED ONE 06/02 0134 DC PO 06/02 0135 Ibuprofen 600 MG ONCE ONE 06/01 2130 DC 06/02 PO 06/01 2131 0141 Losartan Potassium 25 MG DAILY 05/31 1044 AC 06/02 PO 1130 Mexiletine HCl 150 MG BID 05/31 1044 AC 06/02 PO 1132 Oxycodone/ 1 TAB Q8P PRN 06/02 1115 AC 06/02 Acetaminophen PO 1230 Oxycodone/ 1 TAB ONCE ONE 06/02 0230 DC Acetaminophen PO 06/02 0231 Oxycodone/ 1 TAB ONCE ONE 06/01 2130 DC 06/01 Acetaminophen PO 06/01 2131 2229 Polyethylene Glycol 17 GM DAILY PRN 05/31 2045 AC 06/01 PO 2229 Senna/Docusate Sodium 1 TAB BID PRN 05/31 2045 AC 06/01 PO 2229 Tamsulosin HCl 0.4 MG DAILY 06/03 1000 UNVr PO Tamsulosin HCl 0.4 MG DAILY 05/31 1045 AC 06/02 PO 1131 Assessment/Plan Assessment: Patient is 75 year old male with extensive PMH of CABG 1984, stent placement 1991, PPM 2012 came to ER after urinary rentention s/p laser lithotripsy on for 6 mm right renal stone. 6 hours later patient reported pain with urinary retention. Was seen by urologist, clot retrieved and patient was admitted to general medical floor for continuous bladder irrigation. 1. Urinary retention status post TURP currently on continuous bladder irrigation -Urine appears to be clearing compared to admission. -H&H has been stable. -We will avoid NSAIDs given his recent procedure and bleeding risk. Will continue him on Percocet. -Will await further recommendation by urology for further management and plan which possibly would be discharging the patient with indwelling Hernandez and recommendation for follow-up as outpatient with Dr. Archer. - We'll continue Flomax and finasteride 2. Hematuria: Improved. H&H stable 3. Hypertension: We'll continue his home medications including losartan and carvedilol. Blood pressure appears within normal limits. 4. CAD/CABG in 1984 with stent placement in 1991: Patient currently on Plavix at home which is held secondary to bleed we will resume his medications upon discharge. DVT prophylaxis with Alps Full CODE STATUS Problem List: 1. Hematuria 2. Retention, urine Pain Ratin Pain Location: Abdomen Pain Goal: Pain 4 or less Pain Plan: Percocet Tomorrow's Labs & Rationales: Not needed Clinically stable MEENU MURPHY,LANCE 06/02/16 1846: Attending MD Review Statement Attending Statement Attending MD Statement: examined this patient, discuss w/resident/PA/PATENT LITIGATION ASSOCIATE, agreed w/resident/PA/PATENT LITIGATION ASSOCIATE, reviewed EMR data (avail) Attending Assessment/Plan: Patient seen for urology procedure, now with post-procedural hematuria requiring CBI. Patient has a history of CAD with stenting 8 years ago, currently on ASA and Plavix. Continues to have hematuria with CBI, with pink urine in Hernandez bag today, along with sediment. Patient also experiences bladder spasms, possibly related to neprholithiasis. Will continue CBI, eval tomorrow, monitor Hgb, continue Percocet PRN, likely discharge tomorrow.
--- NOTE | 2016-06-02 11:43 | Patient Discharge Instructions ---
Discharge Instructions General Discharge Information You were seen/treated for: Hematuria AFTER ureteroscopy, Laser litho ureter stone-stent placement Special Instructions: Follow up with primary care physician within one week of discharge Please follow-up with your urologist on Friday06/05/[address] Archer's office. You are being discharged with Hernandez catheter on, which needs to be taken out after assessment by Dr Archer on Friday or earlier if needed. Please return to emergency if symptoms worsen, katie blood in urine, or severe pain. Diet Continue normal diet: Yes Recommended Diet: Heart Healthy Activity Full Activity/No Limits: No Activity Self Limited: Yes Acute Coronary Syndrome Inclusion Criteria At DC or during hospital stay patient has or had the following: ACS DIAGNOSIS No Discharge Core Measures Meds if any: Prescribed or Continued at Discharge Meds if any: NOT Prescribed or Continued at Discharge Congestive Heart Failure Inclusion Criteria At DC or during hospital stay patient has or had the following: CHF DIAGNOSIS No Discharge Core Measures Meds if any: Prescribed or Continued at Discharge Meds if any: NOT Prescribed or Continued at Discharge Cerebrovascular accident Inclusion Criteria At DC or during hospital stay patient has or had the following: CVA/TIA Diagnosis No Discharge Core Measures Meds if any: Prescribed or Continued at Discharge Meds if any: NOT Prescribed or Continued at Discharge Venous thromboembolism Inclusion Criteria VTE Diagnosis No VTE Type NONE VTE Confirmed by (Test) NONE Discharge Core Measures - Per Current guidelines, there needs to be overlap - treatment for the first 5 days of Warfarin therapy. - If discharged on Warfarin prior to 5 days of - overlap therapy, the patient will need to be - assessed for post discharge needs including - *Post discharge parental anticoagulation - *Warfarin and/or parental anticoagulation education - *Follow up date to check INR post discharge At least 5 days overlap therapy as Inpatient No Meds if any: Prescribed or Continued at Discharge Note: Overlap Therapy is Warfarin and Anticoagulant Meds if any: NOT Prescribed or Continued at Discharge
[2016-06-02 15:55] VITALS: BP 140/68
[2016-06-03 00:12] VITALS: BP 142/72
--- NOTE | 2016-06-03 06:07 | PN- Housestaff ---
CRISTIAN MURPHY,STEPHANIE 06/03/16 0607: Subjective Follow-up For: Urinary retention and clots status post TURP Complaints: bladder spasms, pain Subjective: I followed up and examined the patient today. He is lying comfortably on the bed. He is complaining of intermittent bladder spasms and pain in the lower abdomen, around his urethral meatus as well, although at the time I saw him, he was not in acute distress. Vitals have been stable, no overnight issues, other than pain mentioned above. Review of Systems Constitutional: Reports: no symptoms. EENTM: Reports: no symptoms. Cardiovascular: Reports: no symptoms. Respiratory: Reports: no symptoms. Gastrointestinal: Reports: see HPI. Genitourinary: Reports: see HPI, dysuria (on Hernandez catheter). Musculoskeletal: Reports: no symptoms. Skin: Reports: no symptoms. Neurological/Psychological: Reports: no symptoms. Hematologic/Endocrine: Reports: no symptoms. Objective Last 24 Hrs of Vital Signs/I&O Vital Signs Date Time Temp Pulse Resp B/P Pulse O2 O2 Flow FiO2 Ox Delivery Rate 06/03 0012 98.1 81 19 142/72 94 Room Air 06/02 2247 70 140/68 06/02 1555 97.8 70 20 140/68 94 Room Air 06/02 1131 80 140/72 06/02 1130 80 140/72 06/02 1130 80 140/72 06/02 0830 98.5 76 20 121/80 94 Room Air Intake & Output 06/03 0800 06/03 0000 06/02 1600 Intake Total 400 720 Output Total 600 650 Balance -600 400 70 Intake, Oral 400 720 Output, Urine 600 650 Physical Exam General Appearance: Alert, Oriented X3, Cooperative, No Acute Distress Other Physical Findings: Physical examnination: General: well nourished patient not in distress Head: Normocephalic, atraumatic Eyes: Pupils normal in size, regular, reacting to light and accommodation, EOM normal Ears: B/l normal on inspection Nose: Normal on inspection Throat/mouth: Moist mucosa Neck: Supple, full range of motion, no thyromegaly Heart: Regular rate, regular rhythm Lung: Normal breath sound bilaterally Added sound not heard Abd: Soft, non-tender, no distention appreciated, Hernandez catheter in situ, bag has dark yellow urine colected, but no katie bleeding, lower abdomen mildly tender on palpation. Back: Normal range of motion Extremities: Normal knee exam bilaterally, no pedal edema, Distal neurovascular intact Neurologic: Alert, oriented x3, Cranial exam grossly intact, Speech is clear and coherent Skin: Warm and dry Psychiatric: Calm, cooperative, coherant Current Medications: Current Medications Sig/Donte Start time Last Medication Dose Route Stop Time Status Admin Acetaminophen 650 MG Q8P PRN 05/31 1100 AC 05/31 PO 2248 Atorvastatin Calcium 10 MG 1700 05/31 1700 AC 06/02 PO 1728 Carvedilol 3.125 MG BID 05/31 1043 AC 06/02 PO 2247 Ezetimibe 10 MG DAILY 05/31 1044 AC 06/02 PO 1131 Finasteride 5 MG DAILY 05/31 1044 AC 06/02 PO 1131 Losartan Potassium 25 MG DAILY 05/31 1044 AC 06/02 PO 1130 Mexiletine HCl 150 MG BID 05/31 1044 AC 06/02 PO 2247 Morphine Sulfate 2 MG ONCE ONE 06/03 0600 DC 06/03 IV 06/03 0601 0605 Opium Alkaloids 60 MG ONCE ONE 06/03 0800 DC 06/03 MT 06/03 0801 0816 Oxycodone/ 1 TAB ONCE ONE 06/03 0545 DC 06/03 Acetaminophen PO 06/03 0546 0548 Oxycodone/ 1 TAB ONCE ONE 06/02 1715 DC 06/02 Acetaminophen PO 06/02 1716 1728 Oxycodone/ 1 TAB Q8P PRN 06/02 1115 AC 06/02 Acetaminophen PO 2314 Polyethylene Glycol 17 GM DAILY PRN 05/31 2045 AC 06/02 PO 2315 Senna/Docusate Sodium 1 TAB BID PRN 05/31 2045 AC 06/01 PO 2229 Tamsulosin HCl 0.4 MG DAILY 06/03 1000 AC PO Tamsulosin HCl 0.4 MG DAILY 05/31 1045 DC 06/02 PO 1131 Assessment/Plan Assessment: Patient is 75 year old male with extensive PMH of CABG 1984, stent placement 1991, PPM 2012 came to ER after urinary rentention s/p laser lithotripsy on for 6 mm right renal stone. 6 hours later patient reported pain with urinary retention. Was seen by urologist, clot retrieved and patient was admitted to general medical floor for continuous bladder irrigation. 1. Urinary retention status post TURP currently on continuous bladder irrigation -Urine appears to be clearing compared to admission. -H&H has been stable. -We will avoid NSAIDs given his recent procedure and bleeding risk. Will continue him on Percocet. -Patient still has bladder spasms and pain over her lower abdominal, around urethral meatus. Awaiting urology consult for the patient later today.UPDATE: I talked with Dr. Archer over phone. Likely to discharge the patient with a Hernandez catheter in situ, and a follow-up after tomorrow on Friday. He also added value for the intermittent bladder spasms 5 mg every 6 hours if needed. And is to discharge the patient today to home. - We'll continue Flomax and finasteride 2. Hematuria: Improved. H&H stable 3. Hypertension: We'll continue his home medications including losartan and carvedilol. Blood pressure appears within normal limits. 4. CAD/CABG in 1984 with stent placement in 1991: Patient currently on Plavix at home which is held secondary to bleed we will resume his medications upon discharge. Continue atorvastatin home med. DVT prophylaxis with Alps Full CODE STATUS Problem List: 1. Urinary retention 2. Urinary tract stone 3. Hx of transurethral resection of prostate Pain Ratin Pain Location: around urethral meatus Pain Goal: Pain 4 or less Pain Plan: morphine, percocet, ibuprofen in place PRN opiate and bell[place]ona suppository PRN Tomorrow's Labs & Rationales: BEP, and CBC to follow up on kidney function (as the patient was obstructed earlier, and for the hematuria follow up. LANCE CORRIGAN MD 06/03/16 1208: Attending MD Review Statement Attending Statement Attending MD Statement: examined this patient, discuss w/resident/PA/WINE PASTEURIZER, agreed w/resident/PA/WINE PASTEURIZER, reviewed EMR data (avail) Attending Assessment/Plan: Patient seen for urology procedure, now with post-procedural hematuria requiring CBI. Patient has a history of CAD with stenting 8 years ago, currently on ASA and Plavix. Urine is clear today. Patient still experiencing bladder spasms that improve with Motrin and Percocet. Vitals stable, no other complaints. May discontinue CBI, monitor urine output. Stable for discharge after urine ouput on Flomax, Motrin, Percocet, Valium for bladder spasm, will follow up with Dr. Archer as an outpatient on 06/05/16.
[2016-06-03 08:40] VITALS: BP 164/92
[2016-06-03 09:21] VITALS: BP 142/80
[2016-06-03 09:53] LABS: ABSOLUTE BASOPHIL COUNT 0.1 /CUMM (0.0-0.2); ABSOLUTE EOSINOPHIL COUNT 0.4 /CUMM (0.0-0.7); ABSOLUTE LYMPH COUNT 1.9 /CUMM (1.2-3.4); ABSOLUTE MONOCYTE COUNT 0.7 /CUMM (0.10-0.60); BASOPHIL % 0.9 % (0.0-2.0); EOSINOPHIL % 4.8 % (0-5); GRANULOCYTE % 61.6 % (42.2-75.2); HEMATOCRIT 42.9 % (42-52); MEAN CORPUSCULAR HGB 28.4 PG (27.0-31.0); MEAN CORPUSCULAR HGB CONC 33.5 G/DL (33.0-37.0); MEAN PLATELET VOLUME 9.1 FL (7.4-10.4); PLATELET COUNT 218 /CUMM (130-400); RBC DISTRIBUTION WIDTH 13.2 % (11.5-14.5); RED BLOOD CELL CT 5.04 /CUMM (4.70-6.10); WHITE BLOOD CELL COUNT 8.1 /CUMM (4.8-10.8)
[2016-06-03] MEDS ORDERED: VALIUM5 M2 PO (11:27)
--- NOTE | 2016-06-03 11:30 | Discharge Summary ---
Visit Information Visit Dates Admission Date: 05/31/16 Discharge Date: 06/03/16 Hospital Course Course Attending Physician: LANCE CORRIGAN MD Primary Care Physician: Keysha CHAN MD Consulting Request: Consulting Specialty: Urology Consulting Physician: Dr Lupe Archer [facility] Course: Mr Selby is a 75 year old pleasant gentleman with past medical history of BPH s /p surgery, CABG 1984, stent placement 1991, PPM 2012, came to ER after urinary rentention s/p laser lithotripsy on 05/30/15 for 6 mm right renal stone. Six hours later, patient reported pain with urinary retention. #For the acute urinary retention, secondary to clots in the bladder, he was seen by urologist, clot retrieved and patient was admitted to general medical floor for continuous bladder irrigation. Hernandez catheter was in place and started collecting clear liquid the next day and after consultation with Dr Archer, the continous bladder irrigation was stopped and watched for the urine collection. It was found to be normal tyson yellow coloured, and the patient was discharged with the Hernandez on, with a follow up schedule with Dr Archer on Friday. Hemoglobin and hematocrit was stable, and the patient was not symptomatic for anemia. Patient did had intermittant lower abdominal pain, described by the patient as "bladder spasms", which were severe at times and was managed with analgesics as well as Valium. He was discharged with a prescription of 15 tablets of Valium, until he sees the urologist. He is to continue Flomax daily. Patient was explained about his condition and the plan agreed upon to get discharged and to be followed up with Urology service. He is to return to emergency if symptoms worsen, including but not limited to unable to produce urine, blood in urine, severe abdominal pain, fever, adbominal distention. Patient understands and agrees to the plan. #Hypertension BP well controlled with home meds Carvedilol, and Losartan. #History of CAD/CABG in 1984 with stent placement in 1991 Statin continued. Plavix held for now. Plan to continue after discharge, depending on his symptoms. If not bleeding. #Regular diet, heart healthy #DVT prophylaxis with APLS #He holds a full code status. Complications: None Allergies: Coded Allergies: No Known Allergies (05/28/16) Pertinent Lab Results: Hematology: on 06/03/16 WBC- 8.1, H/H- 14.4/42.9, plt- 218 On 06/01/16 WBC- 6.5, H/H- 13.2/39.8, plt-201 SERVICE DATE: 05/31/16 EXAM TYPE: RAD - [id number] VIEW EXAMINATION: XR ABDOMEN CLINICAL INDICATION: Bladder pain. Stent placed on 05/30/2016. COMPARISON: CT dated 05/28/2016 and ureteroscopy images from 05/30/2016 TECHNIQUE: AP view of the abdomen FINDINGS: There is a double-J right ureteral stent with coils extending from the right renal pelvis to the right hemipelvis in the region of the ureteral orifice of the bladder. No regions calculi are identified. There is a nondilated bowel gas pattern. Hernia mesh coils are present in the left lower quadrant. Mild degenerative changes are present in the lumbar spine. IMPRESSION: Double-J ureteral stent with coils in the region of the right renal pelvis and right half of the bladder. No radiodense renal calculi. DICTATED BY: MERON CAIN MD DATE/TIME DICTATED:05/31/16208 [employer]:TONA DATE/TIME TRANSCRIBED:05/31/16208 Disposition Summary Disposition Principal Diagnosis: Hematuria AFTER ureteroscopy, Laser litho ureter stone-stent placement Additional Diagnosis: Hypertension Discharge Disposition: home or self care Discharge Instructions General Discharge Information Code Status: Full Code Patient's Diet: Regular diet, heart healthy Patient's Activity: As tolerated, as the patient still has Hernandez catheter and place. Follow-Up Instructions/Appts: Follow up with primary care physician within one week of discharge Please follow-up with your urologist on Friday06/05/[address] Archer's office. You are being discharged with Hernandez catheter on, which needs to be taken out after assessment by Dr Archer on Friday or earlier if needed. Please return to emergency if symptoms worsen, if there is katie blood in the uro-bag, in case of severe pain. Medications at Discharge Discharge Medications: Stop taking the following medications: Tamsulosin HCl (Flomax) 0.4 MG CAP.ER.24H ORAL DAILY Qty = 15 Continue taking these medications: Ezetimibe (Zetia) 10 MG TABLET 1 Tablet ORAL DAILY Days = 30 Comments: Last Taken: 06/03/16 Time: 920AM Losartan Potassium (Cozaar) 25 MG TABLET 1 Tablet ORAL DAILY Days = 30 Comments: Last Taken: 06/03/16 Time: 920AM Finasteride (Finasteride) 5 MG TABLET 1 Tablet ORAL DAILY Days = 30 Comments: Last Taken: 06/03/16 Time: 920AM Clopidogrel Bisulfate (Clopidogrel) 75 MG TABLET 1 Tablet ORAL DAILY Days = 30 Comments: NOT GIVEN IN HOSPITAL Lovastatin (Lovastatin) 40 MG TABLET 1 Tablet ORAL DAILY Days = 30 Instructions: with food Comments: Last Taken: 06/02/16 Time: 1728PM Carvedilol (Carvedilol) 3.125 MG TABLET 1 Tablet ORAL TWICE DAILY Days = 30 Comments: Last Taken: 06/03/16 Time: 920AM Mexiletine HCl (Mexiletine HCl) 150 MG CAPSULE 1 Capsule ORAL TWICE DAILY Days = 30 Comments: Last Taken: 06/03/16 Time: 920AM Tamsulosin HCl (Flomax) 0.4 MG CAP.ER.24H 1 Capsule ORAL DAILY Days = 30 Comments: Last Taken: 06/03/16 Time: 920AM Ibuprofen (Ibuprofen) 600 MG TABLET 1 Tablet ORAL EVERY 6 HOURS NEEDED as needed for pain Qty = 50 Instructions: with food Comments: NOT GIVEN IN HOSPITAL Oxycodone HCl/Acetaminophen (Percocet 5-325 MG Tablet) 5 MG-325 MG TABLET 1 Tablet ORAL EVERY SIX HOURS NEEDED as needed for severe pain Qty = 15 Comments: Last Taken: 06/03/16 Time: 1115AM Start taking the following new medications: Diazepam (Valium) 5 MG TABLET 1 Tablet ORAL THREE TIMES A DAY NEEDED as needed for BLADDER SPASMS Qty = 15 No Refills Comments: NOT GIVEN IN HOSPITAL Copies To: LUPE ARCHER MD; ROCIO MURPHY,Keysha WEINER
== END 2016-06-03 15:20 | DRG 921 ==
LOC: ERH 21:29 → 2NB 05-31 08:46 → ERHI 05-31 08:46 → 2NB 05-31 13:33
PROVIDERS: ADMIT Internal Medicine
PROC: 0TCB7ZZ Extirpation of Matter from Bladder, Via Natural or Artificial Opening (ICD-10-PCS; principal; 2016-05-31)
PROC: 3E1K78Z Irrigation of Genitourinary Tract using Irrigating Substance, Via Natural or Artificial Opening (ICD-10-PCS; 2016-05-31)
DX: N99.820 Postprocedural hemorrhage of a genitourinary system organ or structure following a genitourinary system procedure (principal); R31.9 Hematuria, unspecified; I25.10 Atherosclerotic heart disease of native coronary artery without angina pectoris; R33.9 Retention of urine, unspecified; N40.1 Benign prostatic hyperplasia with lower urinary tract symptoms; R33.8 Other retention of urine; Z95.1 Presence of aortocoronary bypass graft
CPT/HCPCS: 2NBSP; 74000; 74176; 81001; 82355; 87086; 93005; 93010; 96361; 96372; 96374; 96375; 96376; C2617; J1885; J2250; J2270; J2405; J3360

== ENCOUNTER → 2016-05-30 | Day surgery (SDC) | payer OTHER, MEDICARE ==
[~2016-05-30] MED LIST: CARVEDILOL3.125 M1 PO; CLOPIDOGREL75 M1 PO; COZAAR25 M1 PO; FINASTERIDE5 M1 PO; FLOMAX0.4 M1 PO; IBUPROFEN600 M1 PO; LOVASTATIN40 M1 PO; MEXILETINE HCL150 M1 PO; PERCOCET 5-3251 EACH PO; VALIUM5 M2 PO; ZETIA10 M1 PO
--- NOTE | 2016-05-31 04:00 | Operative Report ---
Operative/Inv Procedure Report Surgery Date: 05/30/16 Name of Procedure: CYSTO: RIGHT URETEROSCOPY LASER LITHO OF URETER STONE AND STENT PLACEMENT. Pre-Operative Diagnosis: RIGHT URETER STONE WITH HYDRO-SEVERE PAIN Post-Operative Diagnosis: SAME Estimated Blood Loss: less than 50ml Surgeon/Bundle Tier And Labeler: LUPE MADRID MD Anesthesia: laryngeal mask airway Specimens: RIGHT URETER STONE FRAGMENT Complications: NONE Condition: IMPROVED Operative/Procedure Note Note: The patient was taken to the operating room and placed on the OR table in supine position. With the patient awake, timeout was performed in order to confirm; correct patient, correct procedure, as well as correct laterality, and other pertinent mikey-operative information. After adequate anesthesia and antibiotics , the patient was then placed lithotomy stirrups, draped and prepped in the usual surgical fashion. A 22 Thai cystoscope sheath with 30 angle lens was inserted into the bladder without difficulty. Upon entering the bladder, the bladder was noted to be free of tumor free of stone. Both orifices were in their orthotopic position. The right ureter orifice was intubated with an 8fr cone-tip catheter, and a retrograde pyelogram with fluoroscopy was performed. An 8 mm right distal ureter filling defect c/w stone was visualized, as well as, mild right proximal hydronephrosis. The cone-tipped catheter was removed, followed by insertion of a 0.035 Glidewire, which was advanced into the right renal pelvis without difficulty. Placement confirmed on fluoroscopy. Leaving the Glidewire in place, the cystoscope was removed. Using a rigid Micro-6 ureteroscope, the bladder was then re-entered under direct visualization. The rigth ureter orifice was clearly visible, and wide open. The ureteroscope was ealily advanced/inserted into the open ureter under direct visualization. The ureteroscope was advanced easily and gently into the proximal ureter, and the large ureteral stone was visualized. Under direct visualization the 400 g holmium YAG laser fiber was inserted through the ureteroscope. With the laser fiber in direct contact with the stone, laser lithotripsy was performed in order to pulverize the stone into multiple tiny fragments. The fragments were all flushed out and sent to pathology for analysis. At this point, the ureteroscope was then gently advanced into the right renal pelvis without difficulty. No other stones, nor any tumor was visualized in the renal pelvis. The entire length of the ureter was aslo visualize carefully on the way out with the ureteroscope, and the same findings of no stones or tumor was confirmed. The 22 Thai cystoscope sheath with a 30 angle lens was then reinserted into the bladder, with the Glidewire back loaded into the scope. A 6 x 22 Bard Opti- Lay ureteral stent was inserted over the Glidewire. With the proximal coil advanced into the right renal pelvis, confirmed on fluoroscopy, and the distal coil seen in the bladder, cystoscopically, the Glidewire was removed and the stent remained in proper place. The bladder was then drained, and the cystoscope was removed. The patient tolerated the procedure well was then taken to the recovery room in satisfactory condition. The patient is to follow up in 1-2 weeks for stent removal. Findings: LARGE HYPERVASCULAR PROSTATE DUE TO REGROWTH POST TURP. 6MM STONE CLEARED FROM RIGHT URETER: URETER WITH J-HOOK AT DISTAL URETER DUE TO VERY LARGE PROSTATE Discharge Disposition: PACU CC: LUPE MADRID MD
--- NOTE | 2016-05-31 16:36 | RADIOLOGY REPORT ---
EXAMINATION: XR KIDNEYS, URETER, BLADDER CLINICAL INDICATION: Bladder pain. Stent placed. COMPARISON: Report of CT 05/28/2015. TECHNIQUE: Imaging assistance was provided using the portable image intensifier during a urologic procedure. Fluoroscopy time: 280.6 seconds. FINDINGS: 5 images obtained with the portable image intensifier are submitted. Images are not labeled left or right. Cystoscope present. There is catheterization of the right ureteral orifice. There is opacification of the right collecting system. There is a density superimposing over the distal right ureter. A nephroureteral stent with upper aspect projecting in the region of the intrarenal collecting system is present. Surgical clips in upper quadrant. Evidence of surgical tacks likely related to hernia repair. The intrarenal collecting system is indistinct and not fully opacified. There is an equivocal area of narrowing of the distal ureter with some hooking of the distal ureter. IMPRESSION: Imaging assistance provided during a urologic procedure.
== END ==
LOC: STS 02:25
DX: N13.2 Hydronephrosis with renal and ureteral calculous obstruction (principal); N40.0 Benign prostatic hyperplasia without lower urinary tract symptoms; N23 Unspecified renal colic; I25.10 Atherosclerotic heart disease of native coronary artery without angina pectoris; I10 Essential (primary) hypertension; Z79.01 Long term (current) use of anticoagulants
CPT/HCPCS: 74000; 82355; C2617; J2250